=== PATIENT | female | born 1980 | race Caucasian/White ===

== ENCOUNTER 2017-02-20 01:13 | Inpatient (IN) | payer OTHER ==
[~2017-02-20] VITALS: Ht 171.5 cm; Wt 98.2 kg
[~2017-02-20 01:13] MED LIST: MTR600X PO; PRENTAB26 PO
[2017-02-20] MEDS ORDERED: LACTATED RINGER'S 1000ML 1,000 ML IV SCH (01:20)
[2017-02-20] MEDS ORDERED: LACTATED RINGER'S 1000ML 1,000 ML IV PRN (01:20)
[2017-02-20] MEDS ORDERED: DIPHTHERIA/TETANUS/PERTUSSIS 0.5 ML SYR/VIAL IM. ONE (02:15)
[2017-02-20] MEDS ORDERED: HYDROCORTISONE ACETATE 25 MG SUPP PR PRN (02:15)
[2017-02-20] MEDS ORDERED: BENZOCAINE 20% AER SPR 82.5 GM CAN EXT PRN (02:15)
[2017-02-20] MEDS ORDERED: OXYCODONE/ACETAMINOPHEN 5-325 TAB PO PRN (02:15)
[2017-02-20] MEDS ORDERED: ACETAMINOPHEN 325 MG TAB PO PRN (02:15)
[2017-02-20] MEDS ORDERED: SUPERCREAM 0.870 % 15GM JAR EXT PRN (02:15)
[2017-02-20] MEDS ORDERED: OXYTOCIN INJ 10 UNITS/ML VIAL IM ONE (02:15)
[2017-02-20] MEDS ORDERED: LANOLIN OINT EXT PRN ×2 (02:15)
[2017-02-20] MEDS ORDERED: MEASLES, MUMPS & RUBELLA VIRUS VIAL SQ. ONE (02:15)
[2017-02-20] MEDS: IBUPROFEN 600 MG TAB PO PRN ×4 (02:47→17:08)
[2017-02-20 02:48] LABS: HEMATOCRIT 32.1 % (37-47); MEAN CELL VOLUME 95.3 fL (80-100); MEAN CORPUSCULAR HEMOGLOBIN 34.4 pg (25-34); MEAN CORPUSCULAR HGB CONC 36.1 g/dl (32-36); MEAN PLATELET VOLUME 9.8 fL (7.4-10.4); PLATELET COUNT 171 K/uL (130-400); RED BLOOD COUNT 3.37 M/uL (4.2-5.4); WHITE BLOOD COUNT 11.97 K/uL (4.8-10.8)
[2017-02-20 03:11] VITALS: Ht 171.5 cm; Wt 98.2 kg
[2017-02-20] MEDS ORDERED: CITA20TA9 PO (03:29)
--- NOTE | 2017-02-20 04:31 | DELIVERY SUMMARY ---
DATE OF OPERATION: 02/20/2017 TIME OF DELIVERY OF BABY: 0133. TIME OF DELIVERY OF PLACENTA: 0200. DETAILS OF ADMISSION AND DELIVERY: The patient is a 36-year-old G6, P 4-0-1-4, at 38 weeks and 4 days of gestation, who presented to labor and delivery in active labor. She started to feel contractions around 11:30 p.m. They got closer and regular and then she had leakage of fluid at 0030 this morning. I was clear. She presented to labor and delivery in active labor, grossly leaking amniotic fluid. Her cervix was 6-7 cm. She the quickly progressed to fully dilatation and desired to push. She pushed only once and delivered head and the whole baby without difficulty. Baby was facing upward in occiput posterior position. The baby was handed to the mother where mouth and nose were suctioned. Cord was clamped x2 and cut, it was a 3-vessel cord. There was meconium staining on the baby's skin. Please See nursery notes for details of baby. The Vagina and perineum were checked for lacerations. There was a superficial second-degree perineal laceration at the posterior fourchette, which was confirmed with rectal exam. Gloves were changed. 1% lidocaine was used for local anesthesia and it was repaired with 2-0 Vicryl in a running fashion and skin in a subcuticular fashion. Good hemostasis was achieved. Rest of the vagina and perineum were intact. Then, placenta was found to be in the vagina and delivered spontaneously as intact and complete. Uterus was explored and found to be empty. Lower segment was cleared off all clots and debris. Fundus was firm. EBL was 100. Fundus was firm. Lochia was minimal. The patient did not have time for an IV placement. She was given 10 units of oxytocin IM once. Mother and baby tolerated the procedure well. Sponge, lap, needle and instrument count was correct x2. Baby was a viable female , Apgars 7 and 8. Weight is 2916 gr. No complications happened and I was present during the whole procedure. I attest to the content of the Intraoperative Record and any orders documented therein. Any exceptions are noted below. MTDD
[2017-02-20 04:50] VITALS: BP 114/56; PULSE 56; TEMP 36.7
[2017-02-20 07:45] VITALS: BP 108/60; PULSE 55; TEMP 36.8; O2SAT 96
[2017-02-20] MEDS ORDERED: NURSING VERBAL MED ORDER ONE (07:45)
[2017-02-20] MEDS: CITALOPRAM 20 MG TAB PO SCH (08:13)
[2017-02-20] MEDS: PRENATAL VITAMIN TAB PO SCH (08:13)
[2017-02-20] MEDS: FERROUS SULFATE 325 MG TAB PO SCH (08:13)
[2017-02-20] MEDS: DOCUSATE SODIUM 100 MG CAP PO SCH ×2 (08:13→20:43)
[2017-02-20 11:40] VITALS: BP 104/60; PULSE 49; TEMP 36.9; O2SAT 96
[2017-02-20 16:00] VITALS: BP 111/55; PULSE 52; TEMP 36.7
[2017-02-20 20:30] VITALS: BP 103/51; PULSE 80; TEMP 36.7
[2017-02-21 01:05] VITALS: BP 118/60; PULSE 80; TEMP 36.7; O2SAT 98
[2017-02-21] MEDS: IBUPROFEN 600 MG TAB PO PRN ×4 (01:17→16:59)
[2017-02-21 07:28] LABS: HEMATOCRIT 32.5 % (37-47)
[2017-02-21 08:00] VITALS: BP 108/53; PULSE 52; TEMP 37
[2017-02-21] MEDS: CITALOPRAM 20 MG TAB PO SCH (08:48)
[2017-02-21] MEDS: DOCUSATE SODIUM 100 MG CAP PO SCH ×2 (08:48→20:52)
[2017-02-21] MEDS: PRENATAL VITAMIN TAB PO SCH (08:48)
[2017-02-21] MEDS: FERROUS SULFATE 325 MG TAB PO SCH (08:48)
[2017-02-21 15:32] VITALS: BP 114/54; PULSE 51; TEMP 36.8
[2017-02-21] MEDS ORDERED: BISACODYL 5 MG TABEC PO SCH (20:00)
[2017-02-22 00:05] VITALS: BP 105/57; PULSE 52; TEMP 36.8; O2SAT 98
[2017-02-22] MEDS: IBUPROFEN 600 MG TAB PO PRN ×4 (00:10→13:25)
[2017-02-22] MEDS ORDERED: BISACODYL 10 MG SUPP PR PRN (07:00)
[2017-02-22 07:25] VITALS: BP 111/60; PULSE 48; TEMP 36.8; O2SAT 97
--- NOTE | 2017-02-22 08:45 | OB/GYN Progress Note ---
[facility] Progress Note Date of Service: Feb 22, 2017. Patient is seen and examined. She feels well, no complaints. Ambulating without dizziness Voiding without difficulty Tolerating regular diet with out N&V Bleeding is minimal No fever/ chills/ CP/ SOB/ N&V/ Leg pain Breast feeding without problems She thinks she has a breast duct under her left armpit. It has been sore since yesterday Date Time Temp Pulse Resp B/P Pulse Ox O2 Delivery O2 Flow Rate FiO2 02/22/17 00:05 Room Air 02/22/17 00:05 36.8 52 16 105/57 98 Room Air 02/21/17 16:35 Room Air 02/21/17 15:32 36.8 51 18 114/54 Room Air Test 02/20/17 02:39 02/21/17 07:16 White Blood Count 11.97 H Red Blood Count 3.37 L Hemoglobin 11.6 L 11.2 L Hematocrit 32.1 L 32.5 L Mean Corpuscular Volume 95.3 Mean Corpuscular Hemoglobin 34.4 H Mean Corpuscular Hemoglobin Concent 36.1 H RDW Standard Deviation 43.1 RDW Coefficient of Variation 12.5 Platelet Count 171 Mean Platelet Volume 9.8 PE: General: Alert, orientedx3, NAD Breast: Both breasts engorded with milk Left upper outer close to axillary region there is 1x1.5cm fim but mobile lump, tender to touch Abd: soft, NT, fundus firm, below Umbilicus Perineum intact, Lochia rubra minimal Ext; NT, no edema AP: 36 yo s/p , ppd# 2 VSS Afebrile doing well Continue routine care Left breast/axillary lump: Will order US All questions were answered D/C home today after US
[2017-02-22] MEDS: PRENATAL VITAMIN TAB PO SCH (08:51)
[2017-02-22] MEDS: DOCUSATE SODIUM 100 MG CAP PO SCH (08:51)
[2017-02-22] MEDS: CITALOPRAM 20 MG TAB PO SCH (08:51)
[2017-02-22] MEDS: FERROUS SULFATE 325 MG TAB PO SCH (08:51)
--- NOTE | 2017-02-22 09:40 | OB/GYN Progress Note ---
[facility]IG[facility] ANALY[facility] Progress Note Date of Service: Feb 22, 2017. I talked to radiologist who recommended breast US to be done in breast care center Will arrange her appointment before d/c Patient is aware
--- NOTE | 2017-02-22 09:41 | Discharge Instructions ---
Discharge Instructions Date of Service Feb 22, 2017. Admission Reason for Admission: LABOR Discharge Discharge Diagnosis / Problem: Discharge Goals Goal(s): Routine recovery after delivery Medications Continue Dispensed Medications: lansinoh Activity Recommendations Activity Limitations: as noted below Lifting Limitations: gradually increase as tolerated Exercise/Sports Limitations: until after follow-up appointment May Resume Sexual Activity: after follow-up appointment Shower/Bathe: no limitations Driving or Machine Use: ACTIVITY RECOMMENDATIONS: * Gradual return to full activity over the next 2-3 weeks. * No lifting - nothing heavier than baby over the next 2-3 weeks. * Do not engage in vigorous exercise, sexual activity or sports until cleared by your physician. * Do not drive or operate any motorized equipment until cleared by your physician. * You may shower/bathe daily. BREAST CARE: If you are not breast feeding: * Wear a supportive bra 24 hours a day for one to two weeks. * Avoid stimulating your breasts and nipples as much as possible during the first few weeks after delivery. * When taking a shower, have the warm water hit your back, not breasts. * When your breasts feel full, apply ice packs. Usually three to four times a day helps ease the discomfort. * Take a mild pain medication (Tylenol/Motrin) when you are uncomfortable. If breast feeding: * Use breast milk to lubricate nipples. Lansinoh cream may be used for sore nipples. You do not need to remove cream prior to breast feeding. If using a different brand of cream, check the label for directions regarding removal of cream prior to nursing. * Wear a supportive bra. * If having problems with breasts or breast feeding, call a mobile sales consultant or your health care provider. EPISIOTOMY CARE: After delivery, if you have an episiotomy (stitches), the following steps will ease discomfort and aid healing. * For the first 24 hours after delivery, place ice packs next to your episiotomy to help reduce swelling. * After the first 24 hour-period, sitz baths, either portable or in the tub, are suggested. A shower with a shower arm sprayed over the episiotomy may be comforting. * Aarti care should be done after each voiding and bowel movement. Squirt warm water from a plastic bottle over the perineum (region of the body between the anus and urinary opening) and pat dry. * Use Dermoplast to ease discomfort. Shake container. [place] directly over the episiotomy. * Place a Tucks on a clean sanitary pad next to your episiotomy. OVER THE COUNTER MEDICATION: * For discomfort or pain, you may use Acetaminophen (Tylenol), Ibuprofen (Advil ), or Naproxen (Aleve) following the package directions. * For constipation you may use Colace following the package directions. SPECIAL CARE INSTRUCTIONS: When you are discharged from the hospital, it is important for you to follow the instructions listed below: * During the first week at home, you should be able to care for yourself and your baby. In addition, the usual light household activities are encouraged. * Limit your activities to the way you feel. Do not try to clean the house or move furniture. Be sensible. * If you actively engage in sports and have done so up until the time of your delivery, you may resume these activities as soon as you feel able. This may take up to one month or even longer. Use good judgment. * Continue to take your vitamins for at least six weeks after the of your baby. * Your diet need not be limited unless you were on a special diet before your delivery. Breast-feeding mothers need around 2500 calories per day and at least 64-80 ounces of fluid per day (8 to 10 glasses). * You should eat foods from the four major food groups. Crash diets or fad diets are to be avoided. Eating lean meats, fresh fruits and vegetables, low-fat dairy products, high fiber foods and a regular exercise program, will help you get back to your pre- weight without putting your health at risk. * Constipation is sometimes a problem after delivery. Take a mild laxative as needed. If breast feeding, Milk of Magnesia is acceptable to use. You may use a suppository or Fleets enema if no episiotomy. * A daily shower or tub bath is suggested. Be sure to thoroughly and gently dry the perineum. * A bloody vaginal discharge will usually continue until around four weeks post . A small amount of bleeding may continue for as long as six weeks. Vaginal discharge changes from the bright red bleeding after delivery to pink then brownish and finally yellowish-pink before becoming white and disappearing. * Bleeding may increase with activity. Your first period may come in 4-8 weeks. If you are breast feeding, your period may be delayed even longer. * [place] (sex) can begin whenever both you and your partner feel comfortable and do not have any form of genital infection. It is recommended that you wait until after your return appointment and discuss with your physician. If you have questions, please talk to your health care practitioner. A condom should be used to prevent infection and . * Foreplay, gentle intercourse and lubrication is very important the first several times to prevent pain. A water-based lubricant such as K-Y jelly or Astroglide may be used. * Tampons may be used six weeks after delivery. * Douching should be avoided for 6 weeks after delivery. * If you have RH negative blood and your baby is RH positive, you will receive RHOGAM by injection prior to discharge. The nurse will give you a card to keep with you that has the date and place that you received RHOGAM after delivery. * During your care, you had a Rubella screen done to check for the presence of rubella antibodies in your blood. If your test was negative, you will receive a Rubella vaccine prior to discharge. This vaccine may cause a fever, soreness at the injection site and flu-like symptoms. If these symptoms persist, notify your health care practitioner. is not advised for three months after a Rubella vaccine. There is a higher chance of having a baby with defects if conceived within three months of getting the vaccine. * If you were discharged 24 hours from delivery or before 48 hours: Visiting nurses will come to your home 48 hours after discharge to assess you and your baby. The visiting nurse will meet with you while you are in the hospital to arrange a time and get directions to your home. * Verbalizes understanding of car seat law as reviewed with patient nursing. * Car Seat hand-out given and reviewed with patient by nursing. * Shaken baby information reviewed with patient by nursing. Call you doctor if: * Heavy bleeding (saturating several pads an hour) or passing clots the size of your fist. * A fever >101 degrees F (38.3 degrees C) on two occasions four hours apart and/or chills. * Unusual pain in the pelvic or vaginal areas. * "Baby Blues" lasting longer than two weeks. If you have any questions or concerns, call your health care practitioner at . FOLLOW-UP VISIT: * Please call the office at to schedule a 6 week examination. It is important you keep this appointment. * It is important for you to make arrangements for either yearly or twice yearly check-ups thereafter. . Current Hospital Diet Patient's current hospital diet: Regular OB Diet Discharge Diet Recommended Diet: Regular Diet Pending Studies Studies pending at discharge: no Medical Emergencies . Who to Call and When: Medical Emergencies: If at any time you feel your situation is an emergency, please call 911 immediately. . Non-Emergent Contact Non-Emergency issues call your: Surgeon Call Non-Emergent contact if: temperature is above 100.5, your pain is not controlled . . "Provider Documentation" section prepared by Avni Love. VTE Core Measure Inpt VTE Proph given/why not?: Treatment not indicated
[2017-02-22 13:46] VITALS: BP_DIAS 60; PULSE 48; TEMP 36.8
== END 2017-02-22 14:05 | disposition home or self-care (01) | DRG 774 ==
LOC: C.LD 01:13 → C.OPB 01:13 → C.LD 01:30 → C.OPB 01:30 → C.MS4N 04:51
PROVIDERS: ADMIT Obstetrics & Gynecology; ATTEND Obstetrics & Gynecology
PROC: 10E0XZZ Delivery of Products of Conception, External Approach (ICD-10-PCS; principal; 2017-02-20)
PROC: 0KQM0ZZ Repair Perineum Muscle, Open Approach (ICD-10-PCS; principal; 2017-02-20)
DX: O70.1 Second degree perineal laceration during delivery (principal); O90.89 Other complications of the puerperium, not elsewhere classified; N63 Unspecified lump in breast; Z37.0 Single live birth; Z3A.38 38 weeks gestation of pregnancy

== ENCOUNTER → 2017-02-27 | Outpatient (CLI) | payer OTHER ==
[~2017-02-27] MED LIST changes: +CITA20TA9 PO; -MTR600X PO
--- NOTE | 2017-02-27 16:46 | MAMMOGRAPHY REPORT ---
BILATERAL DIGITAL DIAGNOSTIC MAMMOGRAM TOMOSYNTHESIS WITH CAD AND TARGETED LEFT ULTRASOUND: 7 CLINICAL HISTORY: 36 are old woman with a palpable lump in the left axilla that has been somewhat fl uctuating in size over the past few weeks. The patient is one week and currently lactati ng. Family history of breast cancer = half-sister in her 30s. TECHNIQUE: Bilateral breast tomosynthesis in addition to standard 2D mammography was performed. Curr ent study was also evaluated with a Computer Aided Detection (CAD) system. COMPARISON: No prior exams were available for comparison. BREAST COMPOSITION: The tissue of both breasts is extremely dense, which lowers the sensitivity of mammography. FINDINGS: A triangle skin palpable marker overlies the left axilla, denoting the palpable lump point ed out by the patient. There is a macrolobulated dense 14 x 10 mm mass in the area of the triangle marker. No associated spiculation or microcalcification. A few scattered punctate benign-appearing microcalcifications bilaterally. No other suspicious mass, architectural distortion or cluster of microcalcifications is seen. Targeted ultrasound was performed in the area of palpable concern pointed out by the patient. On pa lpation, there is nodularity with 1-2 subcentimeter adjacent masses in the area of concern. On ultr asound, there is a subtle focal area of isoechoic tissue with coursing anechoic tubular structures w ithin. The sonographic appearance is normal and I suspect this represents focal lactational changes within accessory breast tissue. An adjacent morphologically normal lymph node is identified. No s uspicious solid or cystic mass is seen. IMPRESSION: ACR-BI-RADS CATEGORY 3: PROBABLY BENIGN, TARGETED ULTRASOUND ACR-BI-RADS CATEGORY 3: CA OBABLY BENIGN 1. The palpable lump in the left axilla is thought to correlate with focal lactational changes withi n accessory breast tissue in the left axilla. There is no evidence of a suspicious mass on ultrasou nd. However, given the strong family history of premenopausal breast cancer, would recommend contin ued clinical follow-up and if this area increases would recommend repeat assessment and or fine-need le aspiration based on palpation in the Pathology Department. If it remains stable clinically, coul d consider a follow-up targeted ultrasound in approximately 3 months. 2. Given the strong family history of premenopausal breast cancer, would recommend annual screening mammograms likely with the addition of breast MRI, beginning at 10 years younger to the relative's diagnosis of breast cancer. These results and recommendations were discussed with the patient at the time of the exam. Approximately 10% of breast cancers are not detected with mammography. A negative mammographic repor t should not delay biopsy if a clinically suggestive mass is present. Mckenna Jacobson M.D. ay/:02/27/2017 15:36:32 Element Winding Machine Tender: Kyaw UGARTE(R)(Frida), [facility] letter sent: Follow Up Recommended 3 BI-RADS Code: ACR-BI-RADS Category 3: Probably Benign Ultrasound BI-RADS: ACR-BI-RADS Category 3: P robably Benign
== END | disposition home or self-care (01) ==
LOC: C.MAMM 13:14
PROVIDERS: ATTEND Obstetrics & Gynecology
DX: N63 Unspecified lump in breast (principal); R22.2 Localized swelling, mass and lump, trunk; Z80.3 Family history of malignant neoplasm of breast